=== PATIENT | female | born 2000 | race Hispanic/Latino ===

== ENCOUNTER 2025-04-28 17:17 | Emergency (ER) | payer BC ==
[~2025-04-28] VITALS: Ht 167.6 cm; Wt 77.1 kg
--- NOTE | 2025-04-28 18:00 | ERN ---
ED Note History of Present Illness Stated Complaint: UNABLE TO GET FULL BREATH OF AIR, NO SOB Chief Complaint: Other Problems Time Seen by MD: 17:26 Time Seen by Midlevel: 17:26 Dictation: Patient is a 25-year-old female with no significant past medical history who presents to the emergency department with complaints of unable to get a full breath onset mid February. Patient reports that she was seen by her primary doctor who diagnosed her with gastritis and she is following up with gastroent erologist but reports no relief of symptoms. Patient otherwise denies any chest pain, abdominal pain, nausea or vomiting, denies any fevers. Patient appears anxious. Allergies: Coded Allergies: No Known Drug Allergies (Unverified Allergy, Unknown, 04/28/25) Past Medical History Past Medical History: Asthma Surgical History: None RN Note Reviewed/Agreed w/PFSH: Yes Review of System Dictation Constitutional: Negative for fever,chills, and weight loss Eyes: Negative for injury, pain,redness, and discharge ENT: Negative for injury,pain or swelling Cardiovascular: Negative for chest pain, palpitations, and edema Respiratory: Negative for cough, and wheezing, positive for shortness of breath Abdomen/GI: Negative for abdominal pain, nausea, vomiting, diarrhea, and constipation Back: Negative for injury and pain : Negative for injury, bleeding and discharge MS/Extremity: Negative for injury and deformity Skin: Negative for rash, and discoloration Neuro: Negative for headache, weakness, numbness, tingling, and seizure Psych: Negative for suicide ideation, homicidal ideation, and hallucinations Initial Vital Sign VS Vital Signs Date Time Temp Pulse Resp B/P (MAP) Pulse Ox O2 Delivery O2 Flow Rate FiO2 04/28/25 17:25 98.2 77 18 132/76 97 Room Air Physical Exam Dictation Vital Signs reviewed General Appearance: Alert, oriented x 3, no acute distress, well developed, nourished. Head and Face: non-traumatic. Eyes: PERRL, pink conjunctivas, eyelid no trauma, anterior chamber with arcus senilis. Ears: Pinnas intact and no signs of trauma or erythema ear canals clear and no discharge TM no erythema Nose: No discharge, no bleeding. Oropharynx: Mouth normal, tongue pink. pharynx clear,no erythema, tonsils no exudates, no abscesses noted, mucous membrane moist Neck: Supple, non-tender, no thyromegaly, no masses, no JVD, no bruits Breast:Deferred Chest:No tenderness, no crepitus, no paradoxical movement, no retractions Lungs:Clear, well-ventilated, symmetric, no rales, no wheezing, no rhonchi, no stridor, good breath sounds bilaterally Heart: Regular rate, regular rhythm, no murmur, no gallops Vascular: no peripheral edema, Abdomen: Soft, positive bowel sounds, nondistended, no guarding, nontender, no rebound, no masses no hepatomegaly, no splenomegaly, no Sharma's sign, no hernias. Rectal: Deferred Genital: Deferred Neurological: Normal speech, motor function intact, sensory function intact Musculoskeletal: Neck nontender, full range of motion, back nontender, full range of motion, Extremities: nontender, full range of motion Skin: Color pink, dry, no turgor, no rash, no lacerations, no abrasions, no contusions. Lymphatic: Deferred Results (Laboratory/Radiology) Laboratory/Radiology Laboratory Tests Test 04/28/25 17:53 White Blood Count 10.3 K/uL (4.8-10.8) Red Blood Count 4.75 MIL/uL (4.00-5.50) Hemoglobin 13.4 g/dL (12.0-16.0) Hematocrit 39.9 % (36-48) Mean Corpuscular Volume 84.0 fL (79-99) Mean Corpuscular Hemoglobin 28.2 pg (27.0-33.0) Mean Corpuscular Hemoglobin Concent 33.6 g/dL (32.0-36.0) Red Cell Distribution Width 12.8 % (11.0-15.5) Platelet Count 275 K/uL (130-400) Mean Platelet Volume 9.0 fL (7.5-10.5) Immature Granulocyte % (Auto) 0.2 % (0-1) Neutrophils (%) (Auto) 57.1 % (40.0-77.0) Lymphocytes (%) (Auto) 35.2 % (21.0-51.0) Monocytes (%) (Auto) 6.9 % (3.0-13.0) Eosinophils (%) (Auto) 0.2 % (0.0-8.0) Basophils (%) (Auto) 0.4 % (0.0-5.0) Neutrophils # (Auto) 5.9 K/uL (1.8-7.7) Lymphocytes # (Auto) 3.6 K/uL (1.0-4.8) Monocytes # (Auto) 0.7 K/uL (0.1-1.0) Eosinophils # (Auto) 0.02 K/uL (0.00-0.70) Basophils # (Auto) 0.04 K/uL (0.00-0.20) Absolute Immature Granulocyte (auto 0.02 K/uL (0-1) Nucleated Red Blood Cells 0.0 % (0.0-0.19) Sodium Level 140 mmol/L (136-145) Potassium Level 3.5 mmol/L (3.5-5.1) Chloride Level 103 mmol/L (101-111) Carbon Dioxide Level 24 mmol/L (21-32) Blood Urea Nitrogen 8 mg/dL (7-18) Creatinine 0.7 mg/dL (0.5-1.0) Glomerular Filtration Rate Calc 124 mL/min (>90) Random Glucose 103 mg/dL (70-105) Total Calcium 9.3 mg/dL (8.5-10.1) Lipase 50 U/L (16-77) Serum Test, Qualitative NEGATIVE (NEGATIVE) REASON: sob ORDERING PHYSICIAN: KM PHILLIPS PROCEDURE: CXR1VW - CHEST 1VW EXAM: CR Chest, 1 View. CLINICAL HISTORY: sob COMPARISON: None provided. FINDINGS: LUNGS: The lungs show no infiltrate or other acute finding. PLEURAL SPACES: No evidence of pleural effusion or pneumothorax. MEDIASTINUM: The cardiomediastinal silhouette is within normal limits. BONES: No acute osseous abnormality. IMPRESSION: No acute cardiopulmonary pathology is evident. /[facility] Labs Reviewed?: Yes ED Course ED Course Orders Procedure Category Date Status Time Cbc With Differential LAB 04/28/25 Complete 17:37 Lidocaine Hcl 2% PHA 04/28/25 Complete Viscous (Lidocaine Hcl 18:00 Mag/Alum/Simeth 30ml PHA 04/28/25 Complete (Maalox Plus 30ml) 18:00 Dicyclomine Hcl PHA 04/28/25 Complete (Bentyl 10mg/5ml 18:00 Basic Metabolic Panel LAB 04/28/25 Complete 17:37 Lipase LAB 04/28/25 Complete 17:37 Testing, LAB 04/28/25 Complete Serum Hcg 17:37 Chest 1vw RAD 04/28/25 Resulted 17:37 Hydroxyzine 25mg Tab PHA 04/28/25 Complete (Atarax 25mg Tab) 18:30 Current Medications Medications (Trade) Dose Ordered Sig/Chela Route PRN Reason Start Time Stop Time Status Last Admin Dose Admin Al Hydroxide/Mg Hydroxide (MAALox PLUS 30ML) 30 ml ONCE ONCE PO 04/28/25 18:00 04/28/25 18:01 DC Dicyclomine HCl (Bentyl 10mg/5ml Syrup) 10 mg ONCE ONCE PO 04/28/25 18:00 04/28/25 18:01 DC Hydroxyzine HCl (ATArax 25MG TAB) 25 mg ONCE ONCE PO 04/28/25 18:30 04/28/25 18:31 DC Lidocaine HCl (Lidocaine HCl 2% Viscous) 10 ml ONCE ONCE PO 04/28/25 18:00 04/28/25 18:01 DC Vital Signs Date Time Temp Pulse Resp B/P (MAP) Pulse Ox O2 Delivery O2 Flow Rate FiO2 04/28/25 17:25 98.2 77 18 132/76 97 Room Air Medical Decision Making MDM Patient is a 25-year-old female with no significant past medical history who presents to the emergency department with complaints of unable to get a full breath onset mid February. Patient reports that she was seen by her primary doctor who diagnosed her with gastritis and she is following up with water softener servicer but reports no relief of symptoms. Patient otherwise denies any chest pain, abdominal pain, nausea or vomiting, denies any fevers. Patient appears anxious. CBC showed no leukocytosis, no anemia, chemistry showed no electrolyte imbalance, negative lipase, negative hCG, chest x-ray showed no acute pathology. On physical exam patient is in no acute distress, nontender abdomen to palpation, airway intact no masses noted. No drooling. Patient reports she has a follow up with water softener servicer for an H pylori testing. Patient instructed to continue her appointment. Differential diagnosis: Gastritis, gastroenteritis, anxiety, electrolyte imbalance Need for hospitalization: Patient does not meet criteria for hospitalization. There are no social concerns with this patient. DX & DISP Disposition: Discharge Departure Impression: Primary Impression: Gastritis Additional Impression: Anxiety Condition: Stable Scripts Hydroxyzine HCl (Hydroxyzine HCl) 25 Mg Tablet 1 TAB PO BID for anxiety for 15 Days, #30 TAB 0 Refills Prov: KM PHILLIPS EDITH 04/28/25 Additional Instructions: Your labs were unremarkable. Your chest x-ray was normal. Please avoid any foods that exacerbate your symptoms. Follow up with your water softener servicer. If anything worsens please return to ER. FOLLOW-UP WITH PRIMARY CARE PROVIDER IN 1 TO 2 DAYS. TAKE MEDICATIONS DIRECTED HERE IN THE EMERGENCY ROOM. OKAY TO CONTINUE HOME MEDICATIONS UNLESS OTHERWISE DISCUSSED DURING YOUR VISIT IN THE EMERGENCY ROOM TODAY. RETURN TO YOUR NEAREST EMERGENCY ROOM IF SYMPTOMS WORSEN OR IF THERE IS NO IMPROVEMENT. CALL 911 IF YOU NEED IMMEDIATE ASSISTANCE. TAKE TYLENOL [id number] NEEDED AND IF NO CONTRAINDICATIONS ARE PRESENT. INCREASE ORAL HYDRATION. A WOUND CULTURE OR URINE CULTURE WAS ORDERED HERE IN THE EMERGENCY ROOM DEPARTMENT PLEASE FOLLOW-UP WITH PRIMARY CARE PROVIDER AND ADVISE THEM TO GET REPEAT PORTS FROM OUR FACILITY. IF YOU HAD ANY BREEZY WRAP/SPLINTS THAT WERE APPLIED HERE, PLEASE DO NOT REMOVE THEM UNTIL YOU SEE YOUR PRIMARY CARE OR SPECIALTY. Referrals: SELF,REFERRAL (PCP) Time of Disposition: 18:50 I have reviewed the case, and I agree with, Diagnosis and Plan KM PHILLIPS Apr 28, 2025 18:00
[2025-04-28 18:03] LABS: IMMATURE GRANULOCYTE ABSOLUTE 0.02 K/uL (0-1); NUCLEATED RED BLOOD CELLS 0.0 % (0.0-0.19); PLATELET COUNT (AUTO) 275 K/uL (130-400); RED BLOOD CELL COUNT(AUTO) 4.75 MIL/uL (4.00-5.50); RED CELL DISTRIBUTION WIDTH 12.8 % (11.0-15.5); WHITE BLOOD COUNT (AUTO) 10.3 K/uL (4.8-10.8)
--- NOTE | 2025-04-28 18:13 | HMCIMG ---
EXAM: CR Chest, 1 View. CLINICAL HISTORY: sob COMPARISON: None provided. FINDINGS: LUNGS: The lungs show no infiltrate or other acute finding. PLEURAL SPACES: No evidence of pleural effusion or pneumothorax. MEDIASTINUM: The cardiomediastinal silhouette is within normal limits. BONES: No acute osseous abnormality. IMPRESSION: No acute cardiopulmonary pathology is evident. /[place]
[2025-04-28 18:14] LABS: CREATININE 0.7 mg/dL (0.5-1.0); GLOMERULAR FILTR. RATE CALC 124.0 mL/min (>90); GLUCOSE,RANDOM 103.0 mg/dL (70-105); SODIUM SERUM 140.0 mmol/L (136-145); UREA NITROGEN, BLOOD 8.0 mg/dL (7-18)
[2025-04-28] MEDS ORDERED: HYDR-3421 PO (18:51)
--- NOTE | 2025-04-28 19:10 | NUR ---
PATIENT CARE ASSUMED AT THIS TIME.
[2025-04-28 19:14] VITALS: BP 121/71; PULSE 67; RESP 18; TEMP 98.7; O2SAT 98
[2025-04-28] MEDS: DICYCLOMINE HCL 10 MG/5 ML ML PO ONE (19:20)
[2025-04-28] MEDS: LIDOCAINE HCL 2% VISCOUS 15 ML UDCUP PO ONE (19:20)
[2025-04-28] MEDS: MAG/ALUM/SIMETH 30 ML UDCUP PO ONE (19:20)
== END 2025-04-28 19:30 | disposition home or self-care (01) ==
LOC: EDH 17:17
DX: K29.70 Gastritis, unspecified, without bleeding (principal); F41.9 Anxiety disorder, unspecified; J45.909 Unspecified asthma, uncomplicated
CPT/HCPCS: 36415; 71045; 80048; 83690; 84703; 85025; 99283